=== PATIENT | male | born 1950 | race Caucasian/White ===

== ENCOUNTER 2018-05-31 16:17 | Inpatient (IN) | payer OTHER, MEDICARE ==
[2018-05-31] MEDS ORDERED: ISOVUE-370 76% 100ML VIAL (Q9967) As Ordered (17:07)
[2018-05-31] MEDS: NS 1,000 ML IV (17:14)
[2018-05-31] MEDS: ONDANSETRON 4MG/2ML VIAL (J2405) IV (17:15)
[2018-05-31] MEDS: MORPHINE 4 MG/ML 1ML VIAL/SYRINGE (J2270) IV (17:15)
[2018-05-31 17:31] LABS: BASO % 0.3 % (0.0-1.0); EOS % 0.4 % (0.0-3.0); HEMATOCRIT 40.7 % (42.0-52.0); HEMOGLOBIN 13.5 g/dl (13.5-17.5); IMMATURE GRANULOCYTE % 0.5 % (0-3.0); LYMPH # 1.4 10^3/uL (1.5-4.5); LYMPH % 13.5 % (24.0-44.0); MEAN CORPUSCULAR HEMOGLOBIN 33.7 pg (27.0-33.0); MEAN CORPUSCULAR HGB CONC 33.2 g/dl (32.0-36.5); MEAN CORPUSCULAR VOLUME 101.5 fl (80.0-96.0); MONO # 0.7 10^3/uL (0.0-0.8); MONO % 6.5 % (0.0-5.0); NEUTROPHILS # 8.2 10^3/uL (1.8-7.7); NEUTROPHILS % 78.8 % (36.0-66.0); PLATELET COUNT, AUTOMATED 179 10^3/uL (150-450); RED BLOOD COUNT 4.01 10^6/uL (4.30-6.10); RED CELL DISTRIBUTION WIDTH 13.2 % (11.5-14.5); WHITE BLOOD COUNT 10.4 10^3/uL (4.0-10.0)
[2018-05-31 17:51] LABS: ALBUMIN/GLOBULIN RATIO 0.93 (1.00-1.93); ALKALINE PHOSPHATASE 85 U/L (45-117); ALT/SGPT 42 U/L (12-78); AMYLASE 66 U/L (25-115); ANION GAP 12 MEQ/L (8-16); AST/SGOT 35 U/L (7-37); BILIRUBIN,DIRECT 0.3 MG/DL (0.0-0.2); BILIRUBIN,TOTAL 0.9 MG/DL (0.2-1.0); BLOOD UREA NITROGEN 17 MG/DL (7-18); CALCIUM LEVEL 8.6 MG/DL (8.8-10.2); CARBON DIOXIDE LEVEL 23 MEQ/L (21-32); CHLORIDE LEVEL 106 MEQ/L (98-107); CPK CREATINE PHOSPHOKINASE 287 U/L (39-308); CREATININE FOR GFR 1.16 MG/DL (0.70-1.30); GLOMERULAR FILTRATION RATE > 60.0 (>49); GLUCOSE, FASTING 88 MG/DL (70-100); INR 0.93; LIPASE 112 U/L (73-393); POTASSIUM SERUM 4.4 MEQ/L (3.5-5.1); PROTHROMBIN TIME 12.6 SECONDS (12.1-14.4); SODIUM LEVEL 141 MEQ/L (136-145); TOTAL PROTEIN 8.3 GM/DL (6.4-8.2); TROPONIN I < 0.02 NG/ML (< 0.10)
[2018-05-31] MEDS ORDERED: diphenhydrAMINE INJ 50MG/ML VIAL (J1200) IV (20:45)
[2018-05-31] MEDS ORDERED: EPIDURAL/PCA KEYS XX (20:45)
[2018-05-31] MEDS ORDERED: ONDANSETRON 4MG/2ML VIAL (J2405) IV (20:45)
[2018-05-31] MEDS ORDERED: NALOXONE INJ 0.4 MG/1 ML VIAL (J2310) IV (20:45)
[2018-05-31] MEDS ORDERED: NALBUPHINE HCL 10 MG/ML AMP (J2300) IV (20:45)
[2018-05-31] MEDS: LR 1,000 ML IV (21:39)
[2018-05-31] MEDS: DOCUSATE SODIUM 100 MG CAP PO (21:39)
[2018-05-31] MEDS: ACETAMINOPHEN TAB 650MG DOSE (2X325MG) PO (21:41)
[2018-05-31] MEDS ORDERED: KETOROLAC 30 MG/ML VIAL (J1885) IV (23:00)
[2018-06-01] MEDS: KETOROLAC 30 MG/ML VIAL (J1885) IV ×5 (00:30→23:55)
[2018-06-01] MEDS: MORPHINE 1MG/ML IN 0.9% NACL 100ML IV BAG IV ×2 (00:43→23:54)
[2018-06-01 08:13] LABS: BASO % 0.2 % (0.0-1.0); EOS # 0.1 10^3/uL (0.0-0.50); EOS % 1.1 % (0.0-3.0); HEMATOCRIT 35.3 % (42.0-52.0); HEMOGLOBIN 11.6 g/dl (13.5-17.5); IMMATURE GRANULOCYTE % 0.3 % (0-3.0); LYMPH # 1.8 10^3/uL (1.5-4.5); LYMPH % 27.9 % (24.0-44.0); MEAN CORPUSCULAR HEMOGLOBIN 33.9 pg (27.0-33.0); MEAN CORPUSCULAR HGB CONC 32.9 g/dl (32.0-36.5); MEAN CORPUSCULAR VOLUME 103.2 fl (80.0-96.0); MONO # 0.7 10^3/uL (0.0-0.8); MONO % 11.1 % (0.0-5.0); NEUTROPHILS # 3.9 10^3/uL (1.8-7.7); NEUTROPHILS % 59.4 % (36.0-66.0); PLATELET COUNT, AUTOMATED 147 10^3/uL (150-450); RED BLOOD COUNT 3.42 10^6/uL (4.30-6.10); RED CELL DISTRIBUTION WIDTH 13.4 % (11.5-14.5); WHITE BLOOD COUNT 6.5 10^3/uL (4.0-10.0)
[2018-06-01 08:42] LABS: ANION GAP 5 MEQ/L (8-16); BLOOD UREA NITROGEN 18 MG/DL (7-18); CALCIUM LEVEL 8.3 MG/DL (8.8-10.2); CARBON DIOXIDE LEVEL 26 MEQ/L (21-32); CHLORIDE LEVEL 109 MEQ/L (98-107); CREATININE FOR GFR 1.14 MG/DL (0.70-1.30); GLOMERULAR FILTRATION RATE > 60.0 (>49); GLUCOSE, FASTING 96 MG/DL (70-100); POTASSIUM SERUM 4.6 MEQ/L (3.5-5.1); SODIUM LEVEL 140 MEQ/L (136-145)
[2018-06-01] MEDS: DOCUSATE SODIUM 100 MG CAP PO ×2 (10:25→20:27)
[2018-06-01] MEDS: PANTOPRAZOLE 40MG TAB (PROTONIX) PO (10:25)
[2018-06-01] MEDS: LR 1,000 ML IV (17:51)
[2018-06-02 05:44] LABS: KETONE, URINE AUTO RFX TRACE mg/dL (NEGATIVE); LEUKOCYTE ESTERASE UR AUTO RFX NEGATIVE (NEGATIVE); MUCUS, URINE RFX SMALL (NEGATIVE); NITRITE, URINE AUTO RFX NEGATIVE (NEGATIVE); RBC, URINE AUTO RFX 2 /HPF (0-3); SPECIFIC GRAVITY UR AUTO RFX 1.033 (1.002-1.035); SQUAM EPITHELIAL CELL UR AURFX 0 /HPF (0-6); WBC, URINE AUTO RFX 2 /HPF (0-3)
[2018-06-02] MEDS: KETOROLAC 30 MG/ML VIAL (J1885) IV ×2 (06:28→12:31)
[2018-06-02] MEDS: DOCUSATE SODIUM 100 MG CAP PO ×2 (09:34→20:46)
[2018-06-02] MEDS: PANTOPRAZOLE 40MG TAB (PROTONIX) PO (09:34)
[2018-06-02] MEDS: PERCOCET 5MG/325MG TAB PO ×2 (14:33→22:33)
[2018-06-02] MEDS: IBUPROFEN 600 MG TAB PO ×2 (18:15→23:00)
[2018-06-03] MEDS: PERCOCET 5MG/325MG TAB PO ×5 (02:45→20:03)
[2018-06-03] MEDS: IBUPROFEN 600 MG TAB PO ×4 (04:59→23:41)
[2018-06-03] MEDS ORDERED: MORPHINE 4 MG/ML 1ML VIAL/SYRINGE (J2270) IV ×2 (07:30)
[2018-06-03] MEDS: DOCUSATE SODIUM 100 MG CAP PO ×2 (09:40→20:01)
[2018-06-03] MEDS: PANTOPRAZOLE 40MG TAB (PROTONIX) PO (09:40)
[2018-06-03] MEDS: CYCLOBENZAPRINE 10 MG TAB PO ×3 (09:40→23:41)
[2018-06-04] MEDS: PERCOCET 5MG/325MG TAB PO ×3 (04:33→19:07)
[2018-06-04] MEDS: CYCLOBENZAPRINE 10 MG TAB PO (05:21)
[2018-06-04] MEDS: IBUPROFEN 600 MG TAB PO ×3 (05:22→17:16)
[2018-06-04] MEDS: DOCUSATE SODIUM 100 MG CAP PO ×2 (08:13→20:32)
[2018-06-04] MEDS: PANTOPRAZOLE 40MG TAB (PROTONIX) PO (08:13)
[2018-06-04] MEDS: MIRALAX *UNIT DOSE* 17GM PACKET PO (20:32)
[2018-06-05] MEDS: IBUPROFEN 600 MG TAB PO ×2 (00:09→05:57)
[2018-06-05] MEDS: CYCLOBENZAPRINE 10 MG TAB PO (01:12)
[2018-06-05] MEDS: PERCOCET 5MG/325MG TAB PO (01:13)
[2018-06-05] MEDS: DOCUSATE SODIUM 100 MG CAP PO (08:35)
[2018-06-05] MEDS: MIRALAX *UNIT DOSE* 17GM PACKET PO (08:35)
[2018-06-05] MEDS: PANTOPRAZOLE 40MG TAB (PROTONIX) PO (08:35)
== END 2018-06-05 10:35 | disposition home or self-care (01) | DRG 135 ==
LOC: M MS4PR 06-02 20:53 → M MSPAV 06-01 00:13 → M ED 16:17 → M ED INP 20:31
PROVIDERS: Surgery
DX: S27.321A Contusion of lung, unilateral, initial encounter (principal); S22.42XA Multiple fractures of ribs, left side, initial encounter for closed fracture; E78.00 Pure hypercholesterolemia, unspecified; E66.9 Obesity, unspecified; W17.4XXA Fall from dock, initial encounter; Y92.89 Other specified places as the place of occurrence of the external cause

== ENCOUNTER 2019-05-30 18:25 | Inpatient (IN) | payer MEDICARE, OTHER ==
[~2019-05-30] VITALS: Ht 177.8 cm; Wt 97.7 kg
[~2019-05-30 18:25] MED LIST: ASPI81TA85 PO; ATOR1TAB19 PO; COLA100C5 PO; CYCL10TA PO; IBUP-1022 PO; PERCOCET PO
[2019-05-30 19:11] LABS: BASO % 0.3 % (0.0-1.0); EOS # 0.2 10^3/uL (0.0-0.5); EOS % 2.5 % (0.0-3.0); HEMATOCRIT 35.6 % (42.0-52.0); HEMOGLOBIN 11.6 g/dl (13.5-17.5); LYMPH # 1.6 10^3/uL (1.5-5.0); LYMPH % 24.4 % (24.0-44.0); MEAN CORPUSCULAR HEMOGLOBIN 32.4 pg (27.0-33.0); MEAN CORPUSCULAR HGB CONC 32.6 g/dl (32.0-36.5); MEAN CORPUSCULAR VOLUME 99.4 fl (80.0-96.0); MONO # 0.8 10^3/uL (0.0-0.8); MONO % 12.7 % (0.0-5.0); NEUTROPHILS # 3.9 10^3/uL (1.5-8.5); NEUTROPHILS % 59.6 % (36.0-66.0); PLATELET COUNT, AUTOMATED 198 10^3/uL (150-450); RED BLOOD COUNT 3.58 10^6/uL (4.30-6.10); WHITE BLOOD COUNT 6.5 10^3/uL (4.0-10.0)
[2019-05-30 19:48] LABS: ALBUMIN 2.9 GM/DL (3.2-5.2); ALT/SGPT 20 U/L (12-78); BILIRUBIN,DIRECT 0.2 MG/DL (0.0-0.2); BILIRUBIN,TOTAL 0.7 MG/DL (0.2-1.0); BLOOD UREA NITROGEN 17 MG/DL (7-18); CALCIUM LEVEL 8.3 MG/DL (8.8-10.2); CARBON DIOXIDE LEVEL 29 MEQ/L (21-32); CHLORIDE LEVEL 104 MEQ/L (98-107); CK-MB VALUE MASS < 1.0 NG/ML (<3.6); CPK CREATINE PHOSPHOKINASE 39 U/L (39-308); CREATININE FOR GFR 1.07 MG/DL (0.70-1.30); GLOMERULAR FILTRATION RATE > 60.0 (>49); GLUCOSE, FASTING 90 MG/DL (70-100); MB/CK RELATIVE INDEX 2.56 (< OR =4); NT-PRO BNP 67 PG/ML (<125); POTASSIUM SERUM 4.2 MEQ/L (3.5-5.1); SODIUM LEVEL 137 MEQ/L (136-145); TOTAL PROTEIN 7.3 GM/DL (6.4-8.2); TROPONIN I < 0.02 NG/ML (< 0.10)
[2019-05-30] MEDS ORDERED: ISOVUE-370 76% 100ML VIAL (Q9967) As Ordered ONE (20:16)
--- NOTE | 2019-05-30 21:25 | REPVR ---
PROCEDURE INFORMATION: Exam: CT Angiography Chest With Contrast Exam date and time: 05/30/2019 8:29 PM Clinical history: 68 years old, male; Cough; Additional info: Chronic cough TECHNIQUE: Imaging protocol: Computed tomographic angiography of the chest with intravenous contrast. 3D rendering: MIP reconstructed images were created and reviewed. Radiation optimization: All CT scans at this facility use at least one of these dose optimization techniques: automated exposure control; mA and/or kV adjustment per patient size (includes targeted exams where dose is matched to clinical indication); or iterative reconstruction. Contrast material: ISOVUE 370; Contrast volume: 100 ml; Contrast route: IV; COMPARISON: CT Chest with contrast 05/31/2018 5:14 PM FINDINGS: Pulmonary arteries: Peripheral pulmonary artery evaluation limited by cardiac and respiratory motion artifact. Central pulmonary arteries show no intraluminal defect suggestive of clot. Aorta: No thoracic aortic aneurysm or dissection. Lungs: Pulmonary vascular/interstitial pattern does not suggest active pulmonary edema. No suspicious lung mass or air space process. No central endobronchial lesion. Mild apical emphysema Pleural space: Moderate right and small left dependent pleural effusions. Adjacent atelectasis. No pneumothorax. Heart: No pericardial effusion. Lymph nodes: Small, nonspecific mediastinal nodes are present. Mildly prominent right hilar nodes measure up to 13 mm Bones/joints: Bony structures show no acute fracture or destructive process. . IMPRESSION: 1. No evidence of acute, central pulmonary embolus. Peripheral pulmonary artery evaluation is limited by motion related artifact 2. Bilateral pleural effusions, right greater than left, with atelectasis and with mildly prominent right hilar lymph nodes. No underlying mass or pneumonia. 3. Mild apical predominance likely centrilobular pattern of emphysema Electronically signed by: Tony Lee On 05/30/2019 21:25:27 PM
[2019-05-30] MEDS ORDERED: ACETAMINOPHEN TAB 650MG DOSE (2X325MG) PO PRN (23:45)
[2019-05-31] VITALS (7 sets, daily range): BP systolic 127–142; BP diastolic 61–79
--- NOTE | 2019-05-31 03:08 | HPEPDOC ---
[facility] Medical History & Physical Date of Admission May 30, 2019 Date of Service: May 30, 2019 Attending Physician: NITO TREJO MD History and Physical CHIEF COMPLAINT: Persistent fatigue and lethargy HISTORY OF PRESENT ILLNESS: Alexis is a 68-year-old male who presented to the emergency department on the evening of 05/30 with the chief complaints of persistent lethargy, fatigue and productive cough. 6 weeks ago, patient saw his primary care provider after experiencing productive cough and fatigue. Patient was diagnosed with pneumonia and treated with antibiotics. Patient is unaware of the specific antibiotic agent he took. Patient reports feeling a bit better after the first few days of antibiotic administration, but then experienced a plateau in his symptom improvement. He returned to his PCP 2 weeks ago (4 weeks after initial presentation), and repeat x-rays were taken. Patient did have a follow-up with PCP for this coming Saturday (06/03) for further x-rays. Over the past 7-10 days, the patient has felt very fatigued with a cough productive of clear phlegm. Patient states the frequency of his cough is similar to where it was on initial presentation 6 weeks ago. Rest/sleep is really the only thing that helps with his symptoms. Patient reports associated persistent belching, a decrease in appetite and decrease in desire to drink fluids, as well as rhinorrhea, specifically through right nare. Patient experiences coughing fits when he first wakes up. With these fits, patient endorses a shortness of breath with corresponding pain in his right lower back. It is easier for the patient to breathe while he is sitting up and he uses multiple pillows under his head while sleeping at night. Patient reports he has never had this constellation of symptoms before. He denies any recent extensive travel, exposure to sick contacts, or change in medication other than the aforementioned antibiotic. Patient's neighbor is a physician and he encouraged patient to present to the ED this evening. The patient is a former smoker, having quit 10 years ago after smoking for 30 years and averaging one half a pack per day of cigarettes. Patient denies any significant respiratory history and does not use any home oxygen. Patient has a pet dog at home. 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 He enjoys the outdoors and is an avid fisherman. Patient's primary care physician is Dr. Cobian. Based in [place]. Patient also follows yearly with a insemination worker in [place] for monitoring of an enlarged aorta. In the emergency department, initial labs showed mild anemia that was borderline normocytic versus macrocytic. Patient also had mildly decreased serum calcium and albumin. Chest CT angiography was performed and showed bilateral pleural effusions (right greater than left) with accompanying atelectasis and mildly prominent right hilar lymph nodes. There was also a mild apical predominance resembling a central lobar pattern consistent with emphysema. There was no evidence of PE, underlying mass, or PNA. A 2 view chest x-ray was also performed with no official radiology interpretation as of yet. Cursory review shows blunting of bilateral costophrenic angles with evidence of water densities p resent in bilateral lung bases (right greater than left). Both the right and left inferior heart borders are obscured. There also appears to be increased right hilar markings. A viral respiratory panel was negative. ED provider contacted thoracic surgery regarding patient's imaging results. Thoracic surgery asked hospitalist team to admit the patient with follow-up in the morning for likely chest tube placement and possible surgery to clean out patient's loculated effusion. Antibiotics were requested to be held until effusion samples were obtained. 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 REVIEW OF SYSTEMS: CONSTITUTIONAL: Denies fever, chills, night sweats, or recent unintentional change in weight HEENT: Endorses being nearsighted; Denies headache, lightheadedness, dizziness, blurry vision, diplopia, tinnitus, dysphagia, or odynophagia CARDIOVASCULAR: Denies chest pain, chest pressure or palpitations. RESPIRATORY: Endorses shortness of breath with coughing fits during which it is difficult for patient to catch breath, endorses productive cough of clear sputum with accompanying right lower back pain. GASTROINTESTINAL: Denies abdominal pain, feeling nauseated, or vomiting GENITOURINARY: Denies dysuria or hematuria. MUSCULOSKELETAL: Endorses right lower back pain with cough. NEUROLOGICAL:. Denies numbness or paresthesias. ENDOCRINE: Endorses recent mild cold intolerance. HEMATOLOGIC/LYMPHATIC: Endorses easier bruising over last 4-5 years (patient not on blood thinning medication). HOME MEDICATIONS: Please see below. PHYSICAL EXAMINATION: VITAL SIGNS: Temperature 99.6; (visualized on monitoring in ED) heart rate 86, blood pressure 140/89, respiratory rate 21, 97% O2 saturation on room air GENERAL APPEARANCE: Patient is a very pleasant male who at the end of his right at the end of his ED bed at time of exam. He is cooperative and interactive. He does not appear to be in any acute respiratory distress. HEENT: Normocephalic, atraumatic. Anicteric sclera. Patient is wearing prescription eyeglasses. Pupils are equal, round and reactive to light and accommodation. Extraocular motion testing is intact. There is no conjunctival pallor. There is no palpable cervical or supraclavicular lymphadenopathy. CARDIOVASCULAR: S1, S2 present with 2/6 systolic murmur heard best at the right sternal border, second intercostal space., No rubs or gallops are appreciated. Palpable radial and posterior tibial pulses bilaterally. Adequate capillary refi ll. No lower extremity edema present. LUNGS: Fine crackles present in bilateral lung bases. Cough was elicited with deep breaths. No tympany to percussion. No accessory muscle use or retractions with respiration. Symmetric chest expansion. Adequate respiratory effort. Speaking in full senses without dyspnea. Breathing on room air with good oxygen saturation. ABDOMEN: Soft, nontender and nonpainful to palpation in all abdominal quadrants. No tympany or dullness to percussion. No rebound or guarding. No palpable masses appreciated. MUSCULOSKELETAL: 5/5 muscle strength testing of upper extremity and lower show any bilaterally. EXTREMITIES: No clubbing or cyanosis. Palpable radial and posterior tibial pulses bilaterally. No lower extremity edema. NEUROLOGICAL: Awake, alert and oriented 3. Pleasant and interactive, responding appropriately to questions and commands. No focal deficits. PSYCHIATRIC: Pleasant and appropriate mood, appropriate affect. LABORATORY DATA: Please see below. IMAGIN05/30/19, chest CT angiography No evidence of acute, central pulmonary embolus. Peripheral pulmonary artery evaluation is limited by motion related artifact. Bilateral pleural effusions, right greater than left, with atelectasis and with mildly prominent right hilar lymph nodes. No underlying mass or pneumonia. Mild apical predominance likely centrilobular pattern of emphysema 05/30/19, PA and lateral chest x-ray formal radiology read not yet in; Cursory review shows blunting of bilateral costophrenic angles with evidence of water densities present in bilateral lung bases (right greater than left). Both the right and left inferior heart borders are obscured. There also appears to be increased right hilar markings. MICROBIOLOGY: Please see below. ASSESSMENT & PLAN: This is a 68-year-old male who was treated for pneumonia through his PCP in [place] 6 weeks ago who presented to the ED on the evening of 05/30 with increased lethargy, fatigue, and productive cough over the past 7-[address] angiogram in the ED showed bilateral pleural effusions, right greater than left. The right pleural effusion appears to be loculated. Thoracic surgery was contacted and subsequently requested patient be admitted in preparation for likely placement of chest tube and possible surgery on 05/31 to extricate loculated effusion. Thoracic surgery also asked for patient not to receive antibiotic treatment until effusion samples were obtained. Patient was admitted to the med/surg floor. #Bilateral pleural effusions with loculated right pleural effusion -Patient has had significant lethargy and fatigue with productive cough (clear phlegm) over the past 7-10 days, and was treated with antibiotics for pneumonia 6 weeks ago -Patient is afebrile with normal white count -05/30 Chest CTA showed b/l pleural effusions (rt>lt), w/ rt effusion appearing loculated -Thoracic surgery contacted by ED and requested patient be admitted in preparation for likely chest tube placement and possible surgery to remove effusion. Thoracic surgery also asked that no antibiotics be administered until effusion samples are obtained. -Official thoracic surgery consult placed. -Morning CBC, CMP, and pro-calcitonin ordered -Respiratory viral panel negative -prn acetaminophen for pain #History of recent pneumonia -Patient is afebrile with normal white count -Patient diagnosed with pneumonia 6 weeks ago and treated with unknown antibiotic by PCP. Patient had follow-up x-rays 2 weeks ago with PCP. Patient has experienced increased lethargy and fatigue over the past 7-10 days -Influenza vaccination ordered #Anemia, normocytic versus macrocytic -Borderline MCV between normocytic and macrocytic range -Patient endorses significant lethargy and fatigue over the past 7-10 days -Patient was treated for pneumonia 6 weeks ago -On review, patient was admitted a year ago for rib fractures and had similar CBC -Continue to follow on scheduled morning CBC #Family history of hypercholesterolemia -Patient's mother had elevated cholesterol -Patient's home atorvastatin was continued #DVT prophylaxis: In lieu of likely 05/31 chest tube placement and possible surgery, teds and sequentials were ordered. Vital Signs Vital Signs Date Time Temp Pulse Resp B/P (MAP) Pulse Ox O2 Delivery O2 Flow Rate FiO2 05/30/19 23:05 83 24 132/79 (96) 95 Room Air 05/30/19 18:25 99.6 Laboratory Data Labs 24H Laboratory Tests 2 05/30/19 18:58: Immature Granulocyte % (Auto) 0.5, Neutrophils (%) (Auto) 59.6, Lymphocytes (%) (Auto) 24.4, Monocytes (%) (Auto) 12.7H, Eosinophils (%) (Auto) 2.5, Basophils (%) (Auto) 0.3, Neutrophils # (Auto) 3.9, Lymphocytes # (Auto) 1.6, Monocytes # (Auto) 0.8, Eosinophils # (Auto) 0.2, Basophils # (Auto) 0.0, Nucleated Red Blood Cells % (auto) 0.0, Anion Gap 4L, Glomerular Filtration Rate > 60.0, Calcium Level 8.3L, Total Bilirubin 0.7, Direct Bilirubin 0.2, Aspartate Amino Transf (AST/SGOT) 11, Alanine Aminotransferase (ALT/SGPT) 20, Alkaline Phosphatase 78, Total Creatine Kinase 39, Creatine Kinase MB < 1.0, Creatine Kinase MB Relative Index 2.56, Troponin I < 0.02, DH-Ugu-Q-Type Natriuretic Pep tide 67, Total Protein 7.3, Albumin 2.9L, Albumin/Globulin Ratio 0.66L, Thyroid Stimulating Hormone (TSH) 1.420 CBC/BMP Laboratory Tests 05/30/19 18:58 Microbiology Microbiology 05/30/19 Respiratory Virus Panel (PCR) ([facility]ISSY) - Final, Complete Home Medications Scheduled Atorvastatin Calcium (Atorvastatin Calcium) 10 Mg Tab, 10 MG PO DAILY Allergies Coded Allergies: meperidine (Verified Allergy, Unknown, 05/30/19) A-FIB/CHADSVASC A-FIB History Current/History of A-Fib/PAF?: No Current PO Anticoag Therapy: No (TEDs and SCDs ordered) GME ATTESTATION GME ATTESTATION My faculty preceptor for this patient encounter was physically present during the encounter and was fully available. All aspects of the patient interview, examination, medical decision making process, and medical care plan development were reviewed and approved by the faculty preceptor. The faculty preceptor is aware and concurs with the plan as stated in the body of this note and will attest to such by his/her cosignature. ATTENDING NOTE I agree with the findings and plan above. Briefly, Mr. Nieves is a pleasant 68 yo gentleman with relatively good health who developed a productive cough and profound exhaustion approximately 5-6 weeks ago and presented to his PCP who t reated with 1 week of antibiotics for pneumonia. He had interval improvement of his symptoms but they returned after the antibiotic course and have not been improving such that he was undergoing further evaluation by his PCP when his neighbor and friend who is a physician suggested that he should present to the ED. In the ED he was hemodynamically stable and afebrile and studies were most notable for a CTA that showed bilateral pleural effusion R>L, with the right appearing loculated without evidence of a PE. The ED physician on noting this, consulted the thoracic surgeon who suggested admission to medicine with plan to see him tomorrow with plan for drainage, culture of the fluid pre-antibiotics to increase the yield and possibly further procedure depending on the nature of the effusion. He is therefore being admitted to medicine and we will hold off empiric antibiotics until after he is evaluated by thoracic surgery. YANG ROCHA PGY-1 May 31, 2019 03:08 NITO TREJO MD May 31, 2019 06:10
[2019-05-31 05:56] LABS: HEMATOCRIT 32.4 % (42.0-52.0); HEMOGLOBIN 10.6 g/dl (13.5-17.5); MEAN CORPUSCULAR HEMOGLOBIN 31.9 pg (27.0-33.0); MEAN CORPUSCULAR HGB CONC 32.7 g/dl (32.0-36.5); MEAN CORPUSCULAR VOLUME 97.6 fl (80.0-96.0); PLATELET COUNT, AUTOMATED 200 10^3/uL (150-450); RED BLOOD COUNT 3.32 10^6/uL (4.30-6.10)
[2019-05-31] MEDS ORDERED: ENOXAPARIN 40 MG/0.4 ML SYRINGE (J1650) SC SCH (06:00)
[2019-05-31 06:23] LABS: BLOOD UREA NITROGEN 14 MG/DL (7-18); CALCIUM LEVEL 8.8 MG/DL (8.8-10.2); CARBON DIOXIDE LEVEL 26 MEQ/L (21-32); CHLORIDE LEVEL 107 MEQ/L (98-107); CREATININE FOR GFR 0.92 MG/DL (0.70-1.30); GLOMERULAR FILTRATION RATE > 60.0 (>49); GLUCOSE, FASTING 86 MG/DL (70-100); POTASSIUM SERUM 3.8 MEQ/L (3.5-5.1); SODIUM LEVEL 139 MEQ/L (136-145)
--- NOTE | 2019-05-31 07:51 | ECGEPIP ---
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
[2019-05-31] MEDS ORDERED: FLUBLOK(EGG FREE)(QUAD)INFLUENZA VACC 0.5ML SYRINGE (90682)18YRS&OLDER IM ONE (09:00)
[2019-05-31] MEDS: ATORVASTATIN 10 MG TAB PO SCH (09:31)
--- NOTE | 2019-05-31 10:12 | REP ---
Chest x-ray: Two views. History: Dyspnea and cough. Comparison chest x-ray: June 01, 2018. Findings: Multiple healed rib fractures are noted on the left. There are small bilateral pleural effusions, right greater than left blunting the pleural angles. Fissural thickening is seen on lateral film. The heart is enlarged unchanged. Pulmonary vasculature appears somewhat cephalized. No pulmonary edema is seen. Impression: CHF pattern with bilateral effusions, right greater than left. Multiple old healed left-sided rib fractures. Electronically Signed by Lei Rodrigues MD 05/31/2019 10:18 A
--- NOTE | 2019-05-31 11:31 | CR ---
DATE OF CONSULTATION: 05/31/2019 The patient is seen at the request of the emergency room, Dr. Conrado Stephenson, and the hospitalist service in regard to cough, shortness of breath and a loculated right pleural effusion. HISTORY OF PRESENT ILLNESS: The patient is a 68-year-old white male whose story starts about 6 or 7 weeks ago when he started to develop a cough, preceded by fatigue. This later progressed about a week later to increased shortness of breath with moderate exertion, such as walking upstairs. He has never had problems with shortness of breath prior to 6 or 7 weeks ago. He was bringing up white sputum. No hemoptysis and no green or yellow sputum production. In the last 3 weeks he has developed a mild chest discomfort, particularly after his coughing spells in his posterior right side. However, he denies that it hurts to take a deep breath. He denies fever or sweats. He has been feeling more chilly but without rigor. There has been no dysphagia, but his appetite is markedly decreased. However, he does not report weight changes or changes in his clothes size. At the initial presentation, he saw his primary care provider, who started him on antibiotic. The antibiotic regimen caused a small amount of improvement; however, his symptoms became worse with increased cough and white sputum production and increased shortness of breath. His neighbor is a physician and after relaying him his story, he was advised to go to the emergency room, which he did last night. There was no acute symptomatic change prompting him to come to the emergency room other than the advice of his physician friend. PAST MEDICAL HISTORY: 1. Hyperlipidemia. MEDICATIONS: At home: - atorvastatin 10 mg daily PAST SURGERIES: 1. Two laminectomies on his lower back. He has had a 12-week course of antibiotics many years ago for an osteomyelitis of his finger after scratching it on a steel girder. 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 TRAVEL HISTORY: None outside [facility]. EXPOSURES: He has one dog, a Logan[employer] Bimal Spaniel. No birds or cats. HABITS: Smoked for about 30 years but quit 10 years ago, one pack per day. He drinks socially, maybe a beer a week. There are no illicit drugs. There is no exposure to tuberculosis. He has the above asbestos exposure. FAMILY HISTORY: Mother and father both had diabetes. There is a history of heart disease in the family with brother dying of myocardial infarction and sister secondary to ruptured aortic aneurysm. ALLERGIES: Listed as MEPERIDINE; however, he denies any medication allergies. REVIEW OF SYSTEMS: CONSTITUTIONAL: See history of present illness. EYES: Without diplopia. Without amaurosis fugax. Without prior jaundice. NOSE: Without epistaxis. He does have rhinorrhea, particularly out of the right nostril. MOUTH: Has his own teeth. He does complain of halitosis. RESPIRATORY: See history of present illness. CARDIAC: See history of present illness. Without myocardial infarctions. He does have hyperlipidemia. There is no intermittent claudication. No peripheral edema. GASTROINTESTINAL: Without nausea, vomiting, diarrhea, constipation, melena, hematochezia, hematemesis or abdominal pain. He does complain of decreased appetite as a constitutional symptom. GENITOURINARY: Without dysuria or hematuria. No history of renal stones. ENDOCRINE: Without diabetes. Without thyroid disease. NEUROLOGIC: Without paresthesias, paralysis or prior seizures. HEMATOLOGIC: States that he bruises easily. He also states that he does not have prolonged bleeding times but just increased bruisability, which always seem to heal. PSYCHIATRIC: Without pathological anxieties, depressions, or psychoses. PHYSICAL EXAMINATION: Well developed, well nourished, white male in no acute distress. Temperature is 98.0. Heart rate is 71 with a regular rate and rhythm. Respiratory rate is 18 without the use of accessory muscles. He is 95% saturated on room air. Blood pressure is 133/61. HEAD: Normocephalic. EYES: Pupils are round, equal and reactive to light. Extraocular muscles are intact. Sclerae nonicteric. NOSE: Without deformity. MOUTH: Shows mucous membranes to be pink and moist. Lips and commissures without lesions. There is no thrush. Teeth are in good repair. NECK: Supple. There is no jugular venous distention (JVD). No subcutaneous emphysema. Trachea is midline. There is no thyromegaly or lymphadenopathy. He has 2+ carotid upstrokes without bruits. LUNGS: Slightly decreased breath sounds in the right lower hemithorax. He also has a dull percussion note at the very base of the right hemithorax. The remainder of his pulmonary examination is unremarkable. Normal vesicular sounds without wheezes, rhonchi or rales. CARDIOVASCULAR: Without murmurs, clicks, gallops or rubs. I cannot feel his point of maximum impulse (PMI). S1, S2 normal. ABDOMEN: Soft, nontender. Bowel sounds positive. There is no hepatomegaly. No costovertebral angle tenderness. EXTREMITIES: No pretibial edema. No calf tenderness. No differential swelling of the upper extremities. SKIN: Warm, dry and perfused without cyanosis or mottling, including that of the nailbeds and knees. LYMPHATICS: There is no cervical, subclavicular, infraclavicular or axillary lymphadenopathy. NEUROLOGIC: II-XII intact. Gross motor and gross sensation intact. Gait is intact. PSYCHIATRIC: Shows him to be awake and alert, oriented times three with appropriate mood and conversational. LABORATORY DATA His white count today is 6.0 and 6.5 last night. Hemoglobin and hematocrit are 10.6 and 32.4, respectively with a platelet count of 200. Differential shows 59% neutrophils, 24% lymphocytes, 12% monocytes. There are no immature forms and no toxic granulations. Electrolytes are normal with a BUN and creatinine of 17 and 1.07. Glucose is 90 with a calcium of 8.3 and a corresponding albumin of 2.9. AST and ALT are normal. TSH is also normal. PT/INR not done and I will order those. Chest x-ray done last night in the emergency room shows a vague opacity in the right lower hemithorax, which is blunting the right costophrenic angle. He looks to have some fluid in the fissures on the right side. The left side shows sharp costophrenic angle. Lung is full expanded to the chest wall. CT angio done yesterday does not show a pulmonary embolism; however, it shows a loculated right pleural effusion in the lower hemithorax. He also has a small left rim of a pleural effusion in the lower left hemithorax. The study is of course contrasted. I cannot make out if he has coronary calcifications or whether it is filling the coronary arteries by contrast media. There is no pericardial effusion. He has a rim of compressed lung, which may be a fibrotic line on the right side. Liver is free of lesions. His adrenal glands have a normal configuration. There is no significant mediastinal lymphadenopathy. IMPRESSION: 1. Loculated right pleural effusion. 2. Small left pleural effusion. 3. Probable prior pneumonia, treated with antibiotics, most likely viral origin however. 4. Hyperlipidemia. 5. Mild anemia with mild macrocytosis rather than normal indices. 6. Mild macrocytosis with MCV of 97 to 99. PLAN/DISCUSSION: The basic course would be for Mr. Nieves to undergo a pigtail catheter under ultrasound control by radiology. I do have a sinking feeling that he does have lung entrapment and I will probably end up doing a TPA pleurolysis via the pigtail catheter. The worst case scenario is that he will have to come to a decortication. If the fluid is too viscous to remove by pigtail catheter, I will be forced to undertake a chest tube insertion, although it would be a tricky chest tube insertion secondary to the position of the pleural effusion. I will transfer him to progressive care unit (PCU) tomorrow in preparation for his pigtail catheter and Pleur-evac. We will send the pleural fluid for all the requisite studies, including hematology, chemistry, bacteriology, and cytology.
--- NOTE | 2019-05-31 11:50 | IPNPDOC ---
Date Seen The patient was seen on 05/31/19. Progress Note SUBJECTIVE: 68-year-old male with past medical history of hyperlipidemia, recently treated for pneumonia has been admitted for right-sided loculated pleural effusion. He was evaluated by thoracic surgery who recommended pigtail catheter with drainage, pleural fluid studies ordered, if unsuccessful will require TPA dornase infusion via pigtail catheter and/or decortication. Patient reports that he continues to have cough, nonproductive, along with pleuritic chest pain on the right side, minimal dyspnea. He denies any vomiting, abdominal pain or diarrhea. 10 point review of systems negative except for above PHYSICAL EXAMINATION: VITAL SIGNS: Please see below. GENERAL: No distress HEENT: Normocephalic, atraumatic, moist mucous membranes NECK: Supple CARDIOVASCULAR EXAMINATION: S1, S2, no murmurs RESPIRATORY EXAMINATION: Right lower lobe crackles appreciated, no wheezing ABDOMINAL EXAMINATION: Soft, nontender, nondistended, positive bowel sounds EXTREMITIES: Range of motion intact SKIN: No rash NEUROLOGICAL EXAMINATION: Alert and oriented 3, no focal deficits PSYCHIATRIC EXAMINATION: Calm and cooperative LABORATORY DATA, IMAGING STUDIES, MICROBIOLOGY: Please see below. DVT prophylaxis ordered?: Yes ASSESSMENT AND PLAN: 68-year-old male recently treated for pneumonia presents with right loculated effusion concerning for possible empyema. PROBLEMS: 1. Right sided Loculated pleural effusion: . Treated for pneumonia 4 weeks ago, continues to have cough, pleuritic chest pain, dyspnea. Remains afebrile and hemoglobin is stable, no signs of disseminated infection. Evaluated by thoracic surgery, pigtail catheter recommended, if unsuccessful, may require TPA/dornase infusion and/or decortication. Hold off on antibiotics for now until pleural fluid studies have been sent. 2. Hyperlipidemia. Continue atorvastatin. DVT prophylaxis: Lovenox. GI prophylaxis: Not needed at this time 2. : . 3. : . DISPOSITION: . VS, I&O, 24H, Fishbone Vital Signs/I&O Vital Signs Date Time Temp Pulse Resp B/P (MAP) Pulse Ox O2 Delivery O2 Flow Rate FiO2 05/31/19 10:00 97.6 72 18 140/74 (96) 97 Room Air I&O- Last 24 Hours up to 6 AM 05/31/19 06:00 Intake Total 250 ml Balance 250 ml Laboratory Data 24H LABS Laboratory Tests 2 05/30/19 18:58: Immature Granulocyte % (Auto) 0.5, Neutrophils (%) (Auto) 59.6, Lymphocytes (%) (Auto) 24.4, Monocytes (%) (Auto) 12.7H, Eosinophils (%) (Auto) 2.5, Basophils (%) (Auto) 0.3, Neutrophils # (Auto) 3.9, Lymphocytes # (Auto) 1.6, Monocytes # (Auto) 0.8, Eosinophils # (Auto) 0.2, Basophils # (Auto) 0.0, Nucleated Red Blood Cells % (auto) 0.0, Anion Gap 4L, Glomerular Filtration Rate > 60.0, Calcium Level 8.3L, Total Bilirubin 0.7, Direct Bilirubin 0.2, Aspartate Amino Transf (AST/SGOT) 11, Alanine Aminotransferase (ALT/SGPT) 20, Alkaline Phosphatase 78, Total Creatine Kinase 39, Creatine Kinase MB < 1.0, Creatine Kinase MB Relative Index 2.56, Troponin I < 0.02, VR-Ibe-H-Type Natriuretic Peptide 67, Total Protein 7.3, Albumin 2.9L, Albumin/Globulin Ratio 0.66L, T hyroid Stimulating Hormone (TSH) 1.420 05/31/19 05:24: Nucleated Red Blood Cells % (auto) 0.0, Anion Gap 6L, Glomerular Filtration Rate > 60.0, Calcium Level 8.8 CBC/BMP Laboratory Tests 05/30/19 18:58 05/31/19 05:24 Microbiology Microbiology 05/30/19 Respiratory Virus Panel (PCR) ([facility]) - Final, Complete REYNALDO WHITAKER MD May 31, 2019 11:50
[2019-05-31 12:22] LABS: INR 1.11
[2019-05-31 12:23] LABS: PARTIAL THROMBOPLASTIN TIME 30.6 SECONDS (25.0-38.4)
[2019-05-31] MEDS ORDERED: SLF 3 ML SYR IV PRN (13:45)
[2019-05-31] MEDS: SLF 3 ML SYR IV SCH ×2 (14:26→22:00)
[2019-06-01] VITALS (9 sets, daily range): BP systolic 105–144; BP diastolic 58–92
[2019-06-01 05:43] LABS: HEMATOCRIT 31.8 % (42.0-52.0); HEMOGLOBIN 10.5 g/dl (13.5-17.5); MEAN CORPUSCULAR HEMOGLOBIN 32.5 pg (27.0-33.0); MEAN CORPUSCULAR VOLUME 98.5 fl (80.0-96.0); PLATELET COUNT, AUTOMATED 197 10^3/uL (150-450); RED BLOOD COUNT 3.23 10^6/uL (4.30-6.10); WHITE BLOOD COUNT 4.7 10^3/uL (4.0-10.0)
[2019-06-01] MEDS: SLF 3 ML SYR IV SCH ×3 (05:56→20:23)
[2019-06-01 06:07] LABS: ALBUMIN 2.5 GM/DL (3.2-5.2); ALT/SGPT 20 U/L (12-78); BILIRUBIN,TOTAL 0.4 MG/DL (0.2-1.0); BLOOD UREA NITROGEN 17 MG/DL (7-18); CALCIUM LEVEL 8.4 MG/DL (8.8-10.2); CARBON DIOXIDE LEVEL 26 MEQ/L (21-32); CHLORIDE LEVEL 108 MEQ/L (98-107); CREATININE FOR GFR 0.87 MG/DL (0.70-1.30); GLOMERULAR FILTRATION RATE > 60.0 (>49); GLUCOSE, FASTING 93 MG/DL (70-100); LDH LACTATE DEHYDROGENASE 116 U/L (87-241); MAGNESIUM LEVEL 2.1 MG/DL (1.8-2.4); PHOSPHORUS LEVEL 3.3 MG/DL (2.5-4.9); SODIUM LEVEL 139 MEQ/L (136-145); TOTAL PROTEIN 7.4 GM/DL (6.4-8.2)
[2019-06-01] MEDS ORDERED: FLUBLOK(EGG FREE)(QUAD)INFLUENZA VACC 0.5ML SYRINGE (90682)18YRS&OLDER IM ONE (09:00)
[2019-06-01] MEDS: ATORVASTATIN 10 MG TAB PO SCH (09:24)
[2019-06-01] MEDS: KETOROLAC 30 MG/ML VIAL (J1885) IV SCH ×2 (12:00→17:24)
[2019-06-01] MEDS ORDERED: LEVALBUTEROL 1.25 MG/0.5 ML CONCENTRATE NEB NEB PRN (13:15)
[2019-06-01] MEDS ORDERED: BISACODYL 10 MG SUPP PR PRN (13:15)
[2019-06-01] MEDS ORDERED: ONDANSETRON 4MG/2ML VIAL (J2405) IV PRN (13:15)
[2019-06-01] MEDS ORDERED: PERCOCET 5MG/325MG TAB PO PRN ×2 (13:15)
[2019-06-01] MEDS: KCL 20MEQ IN D5/NS 1000ML 1,000 ML IV SCH (13:58)
[2019-06-01] MEDS: LEVALBUTEROL 1.25 MG/0.5 ML CONCENTRATE NEB NEB SCH ×2 (14:00→20:20)
--- NOTE | 2019-06-01 14:33 | IPNPDOC ---
Date Seen The patient was seen on 06/01/19. Progress Note SUBJECTIVE: 68-year-old male with past medical history of hyperlipidemia, recently treated for pneumonia has been admitted for right-sided loculated pleural effusion. He was evaluated by thoracic surgery who recommended pigtail catheter with drainage, pleural fluid studies ordered, if unsuccessful will require TPA dornase infusion via pigtail catheter and/or decortication. Patient reports that he continues to have cough, nonproductive, along with pleuritic chest pain on the right side, minimal dyspnea. He denies any vomiting, abdominal pain or diarrhea. 06/01/2019 Patient comfortable in bed, continues to have dry cough, continue Ceftin or chest pain on the right side, denies any dyspnea, vomiting or diarrhea. Patient was evaluated by thoracic surgery yesterday, plan for pigtail catheter by IR today. Patient is seeming to be stable, not showing any signs of septicemia. 10 point review of systems negative except for above PHYSICAL EXAMINATION: VITAL SIGNS: Please see below. GENERAL: No distress HEENT: Normocephalic, atraumatic, moist mucous membranes NECK: Supple CARDIOVASCULAR EXAMINATION: S1, S2, no murmurs RESPIRATORY EXAMINATION: Right lower lobe crackles appreciated, no wheezing ABDOMINAL EXAMINATION: Soft, nontender, nondistended, positive bowel sounds EXTREMITIES: Range of motion intact SKIN: No rash NEUROLOGICAL EXAMINATION: Alert and oriented 3, no focal deficits PSYCHIATRIC EXAMINATION: Calm and cooperative LABORATORY DATA, IMAGING STUDIES, MICROBIOLOGY: Please see below. DVT prophylaxis ordered?: Yes ASSESSMENT AND PLAN: 68-year-old male recently treated for pneumonia presents with right loculated effusion concerning for possible empyema. PROBLEMS: 1. Right sided Loculated pleural effusion: . Treated for pneumonia 4 weeks ago, continues to have cough, pleuritic chest pain, dyspnea. Remains afebrile and hemoglobin is stable, no signs of dissemi nated infection. Evaluated by thoracic surgery, scheduled for pigtail catheter today by IR. Hold off on antibiotics for now until pleural fluid studies have been sent. 2. Hyperlipidemia. Continue atorvastatin. DVT prophylaxis: Lovenox. GI prophylaxis: Not needed at this time VS, I&O, 24H, Fishbone Vital Signs/I&O Vital Signs Date Time Temp Pulse Resp B/P (MAP) Pulse Ox O2 Delivery O2 Flow Rate FiO2 06/01/19 11:36 98.2 71 18 141/82 (101) 93 Room Air I&O- Last 24 Hours up to 6 AM 06/01/19 05:59 Intake Total 1230 ml Output Total 200 ml Balance 1030 ml Laboratory Data 24H LABS Laboratory Tests 2 06/01/19 05:16: Nucleated Red Blood Cells % (auto) 0.0, Anion Gap 5L, Glomerular Filtration Rate > 60.0, Calcium Level 8.4L, Phosphorus Level 3.3, Magnesium Level 2.1, Total Bilirubin 0.4, Aspartate Amino Transf (AST/SGOT) 13, Alanine Aminotransferase (ALT/SGPT) 20, Alkaline Phosphatase 66, Lactate Dehydrogenase 116, Total Protein 7.4, Albumin 2.5L, Albumin/Globulin Ratio 0.51L CBC/BMP Laboratory Tests 06/01/19 05:16 Microbiology Microbiology 05/30/19 Respiratory Virus Panel (PCR) ([facility]) - Final, Complete REYNALDO WHITAKER MD Jun 01, 2019 14:33
[2019-06-01] MEDS ORDERED: LIDOCAINE 1% MDV 20ML VIAL As Ordered ONE (15:11)
[2019-06-01 16:39] LABS: PH BODY FLUID 7.505 UNITS (NOT ESTABLISHED); SOURCE, BODY FLUID pH PLEURAL
[2019-06-01 17:01] LABS: AMYLASE, BODY FLUID 41 U/L (NOT ESTABLISHED); CHOLESTEROL, BODY FLUID 74 MG/DL (NOT ESTABLISHED); LDH, BODY FLUID 741 U/L (NOT ESTABLISHED); SOURCE, BODY FLUID AMYLASE PLEURAL; SOURCE, BODY FLUID CHOL PLEURAL; SOURCE, BODY FLUID GLUCOSE PLEURAL; SOURCE, BODY FLUID LDH PLEURAL; SOURCE, BODY FLUID TRIG PLEURAL; TRIGLYCERIDE, BODY FLUID 30 MG/DL (NOT ESTABLISHED)
[2019-06-01 17:02] LABS: SOURCE, BODY FLUID ALBUMIN PLEURAL; SOURCE, BODY FLUID TOT PROTEIN PLEURAL; TOTAL PROTEIN, BODY FLUID 5.6 G/DL (NOT ESTABLISHED)
[2019-06-01 17:21] LABS: SOURCE, BODY FLUID PLEURAL
[2019-06-01 17:22] LABS: APPEARANCE, BODY FLUID HAZY (CLEAR); PLEURAL FL COLOR ORANGE (COLORLESS)
[2019-06-01] MEDS: NORCO, ANEXSIA 5/325MG TABLET (HYDROcodone/ACETAMINOPHEN) PO PRN ×2 (17:32→20:39)
[2019-06-01] MEDS: DOCUSATE SODIUM 100 MG CAP PO SCH (20:15)
[2019-06-02] VITALS: BP 141/81
[2019-06-02] MEDS: KETOROLAC 30 MG/ML VIAL (J1885) IV SCH ×5 (00:15→23:46)
[2019-06-02] MEDS: LEVALBUTEROL 1.25 MG/0.5 ML CONCENTRATE NEB NEB SCH ×4 (02:07→21:06)
[2019-06-02] MEDS: KCL 20MEQ IN D5/NS 1000ML 1,000 ML IV SCH (03:20)
[2019-06-02 04:00] VITALS: BP 120/65
[2019-06-02] MEDS: SLF 3 ML SYR IV SCH ×3 (05:33→20:36)
[2019-06-02 06:11] LABS: BASO % 0.2 % (0.0-1.0); EOS # 0.1 10^3/uL (0.0-0.5); EOS % 3.1 % (0.0-3.0); HEMATOCRIT 30.8 % (42.0-52.0); HEMOGLOBIN 9.9 g/dl (13.5-17.5); LYMPH # 1.6 10^3/uL (1.5-5.0); LYMPH % 38.3 % (24.0-44.0); MEAN CORPUSCULAR HGB CONC 32.1 g/dl (32.0-36.5); MEAN CORPUSCULAR VOLUME 99.7 fl (80.0-96.0); MONO # 0.5 10^3/uL (0.0-0.8); MONO % 12.4 % (0.0-5.0); NEUTROPHILS # 1.9 10^3/uL (1.5-8.5); NEUTROPHILS % 45.5 % (36.0-66.0); PLATELET COUNT, AUTOMATED 185 10^3/uL (150-450); RED BLOOD COUNT 3.09 10^6/uL (4.30-6.10); WHITE BLOOD COUNT 4.3 10^3/uL (4.0-10.0)
[2019-06-02 06:34] LABS: BLOOD UREA NITROGEN 21 MG/DL (7-18); CALCIUM LEVEL 8.7 MG/DL (8.8-10.2); CARBON DIOXIDE LEVEL 26 MEQ/L (21-32); CHLORIDE LEVEL 108 MEQ/L (98-107); CREATININE FOR GFR 1.19 MG/DL (0.70-1.30); GLOMERULAR FILTRATION RATE > 60.0 (>49); GLUCOSE, FASTING 91 MG/DL (70-100); MAGNESIUM LEVEL 2.1 MG/DL (1.8-2.4); POTASSIUM SERUM 4.4 MEQ/L (3.5-5.1); SODIUM LEVEL 140 MEQ/L (136-145)
[2019-06-02 07:50] LABS: LDH LACTATE DEHYDROGENASE 125 U/L (87-241); TOTAL PROTEIN 7.2 GM/DL (6.4-8.2)
[2019-06-02 08:00] VITALS: BP 134/77
--- NOTE | 2019-06-02 08:19 | REP ---
Clinical: Follow up pleural effusion. Technique: PA and lateral. Comparison: 05/30/2019. Findings: Mediastinum and cardiac silhouette are stable. Pigtail catheter in identified at the right base with decreased right lower lobe effusion. Small left effusion and bibasilar atelectasis suggested. No pneumothorax. Skeletal structures intact. Impression: Pigtail catheter at the right base with decreased right pleural effusion. Small left pleural effusion and bibasilar atelectasis remains stable. Electronically Signed by Chau Madsen MD 06/02/2019 08:11 A
[2019-06-02] MEDS: PANTOPRAZOLE 40MG TAB (PROTONIX) PO SCH (09:29)
[2019-06-02] MEDS: ATORVASTATIN 10 MG TAB PO SCH (09:29)
[2019-06-02] MEDS: DOCUSATE SODIUM 100 MG CAP PO SCH ×2 (09:29→20:35)
[2019-06-02] MEDS: MOM 30ML SUSPENSION UDC PO SCH (09:30)
--- NOTE | 2019-06-02 10:38 | IPN ---
DATE: 06/02/2019 Mr. Nieves underwent his ultrasound-guided thoracentesis. The report has not been dictated and I do not know exactly how much came out. Nonetheless, overnight, he has put out 255 mL. He states he is feeling much better and he is not coughing as much. His vital signs show a maximum temperature (T-max) of 98.2 with a heart rate that ranges between 67 and 76 and in sinus rhythm, respiratory rate of 16-20 without the use of accessory muscles, who is 94% saturated on room air and his blood pressures range between 132/75 to 141/81. His intake and output over the past 24 hours has been recorded as 2000 in and 655 out for a positivity of 1345 mL. As noted above, he has put out 255 mL from the chest tube and there is no air leak. Weight today is 97.2 kg compared to 94.3 kg yesterday. On physical examination, he has crackles and rales during inspiration in the right lower lung. He also has the same in the left lower hemithorax. Percussion note is full to the diaphragm. Cardiac exam is without murmur, clicks, gallops or rubs. I cannot feel his point of maximum impulse (PMI). S1 and S2 are normal. Abdomen is soft and nontender. Bowel sounds are positive. There is no hepatomegaly. No costovertebral angle (CVA) tenderness. Extremities still show 1+ pretibial edema with no calf tenderness. No differential swelling of the upper extremities. Skin is warm, dry and perfused without cyanosis or mottling including that of the nail beds and knees. Neck is supple. There is no jugular venous distention. No subcutaneous emphysema. Trachea is midline. Mouth shows his mucous membranes to be pink and moist. Lips and commissures are without lesions. There is no thrush. Eyes show his pupils to be equal and reactive. Extraocular movements intact. Sclerae nonicteric. Neurologic shows II-XII intact along with gross motor and gross sensation intact. Gait is not tested. Psychiatric showed him to be awake, alert and oriented times three with appropriate and affect and conversational. His white count today is 4.3 with a hemoglobin and hematocrit of 9.9 and 30.8 essentially unchanged from yesterday with a platelet count of 185. Differential shows 45% neutrophils, 38% lymphocytes, 12% monocytes. There are no immature forms or toxic granulations. His electrolytes are essentially normal with a BUN and creatinine of 21 and 1.19, calcium 8.7 and a glucose of 91 with a corresponding albumin of 2.5. His pleural fluid has come back with a pH 7.50 with an LDH of 741 with a corresponding serum LDH of 125. He has 2087 white cells, 8% of which are neutrophils and 91% on non-neutrophils, either lymphocytes or monocytes. Glucose is 67. This looks to be a non-neutrophilic exudative effusion. His chest x-ray shows a improvement in the pleural effusion. The pigtail catheter is in good place. He still has a left pleural effusion. There looks to be some compressive atelectasis and/or infiltrate in the right lower lobe. It does look as though the lung has come back to the chest wall, which is quite gratifying. IMPRESSION: 1. Loculated right pleural effusion improved with placement of pigtail catheter. 2. Small left pleural effusion continuing. 3. Probably prior pneumonia treated with antibiotics. 4. Hyperlipidemia. 5. Mild anemia with macrocytosis. 6. Exudative non-neutrophilic pleural effusion. PLAN/DISCUSSION: I will obtain another CT scan on him today to look at the expansion of the lung major to the chest wall and also look for any underlying malignancy. We will await the final pathology. Microbiology is not yet completed and there is no Gram stain done as of yet. I will also obtain an echocardiogram. Certainly a possibility for his left pleural effusion could be systolic or diastolic dysfunction. The other major category of the pleural effusions could be autoimmune.
[2019-06-02 12:00] VITALS: BP 135/73
[2019-06-02 16:00] VITALS: BP 129/70
--- NOTE | 2019-06-02 16:04 | IPNPDOC ---
Text Note Date of Service The patient was seen on 06/02/19. NOTE Subjective: Patient stated that he has less cough. No any acute events overn ight. Patient denies fever, chills, nausea, vomiting, diarrhea or dysuria Objective:VITAL SIGNS: Please see below. GENERAL APPEARANCE: Well-nourished, well-developed, not in apparent distress HEENT: Normocephalic, atraumatic. Mucous members moist and pink CARDIOVASCULAR: Regular rate and rhythm. No murmurs, rubs or gallops. Radial pulses are intact. There is no lower extremity edema LUNGS: . Diminished lung sounds, Right lower lobe crackles appreciated, no wheezing ABDOMEN: Bowel sounds are hypoactive. Abdomen is soft and nontender. MUSCULOSKELETAL: Range of motion is intact in all 4 extremities NEUROLOGICAL: Cranial nerves II-12 are grossly intact. Speech is not dysarthric ASSESSMENT AND PLAN: 68-year-old male recently treated for pneumonia presents with right loculated effusion concerning for possible empyema. Loculated right pleural effusion Lites criteria shows exudate. Await Gram stain. There is concern for autoimmune versus malignant process There is also possibility that patient had unresolved loculated exudate from previous pneumonia improved with placement of pigtail catheter Will repeat CT of the chest Await final pathology with cytology We will check JOVANY, CRP,RF, P-ANCA, anti citrullinated Ab Echo 2. Hyperlipidemia. Continue atorvastatin. VS,Fishbone, I+O VS, Fishbone, I+O Laboratory Tests 06/02/19 05:29 Vital Signs Date Time Temp Pulse Resp B/P (MAP) Pulse Ox O2 Delivery O2 Flow Rate FiO2 06/02/19 12:00 98.6 65 18 135/73 (93) 94 Room Air I&O- Last 24 Hours up to 6 AM 06/02/19 05:59 Intake Total 1640 ml Output Total 955 ml Balance 685 ml NILDA PETERSON DO Jun 02, 2019 16:04
[2019-06-02 16:28] LABS: C REACTIVE PROTEIN QUANTITATIV 2.76 MG/DL (0.00-0.30); RHEUMATOID FACTOR QUANT < 10.0 IU/ML (<15.0)
[2019-06-02 16:47] LABS: ERYTHROCYTE SEDIMENTATION RATE 102 mm/hr (0-20)
--- NOTE | 2019-06-02 17:01 | REP ---
Ultrasound-guided right pleural catheter placement The procedure was performed by NAVNEET Vasquez, under the direct supervision of Dr. Terry. The risks and benefits of the procedure were explained to the patient and informed consent was obtained both verbally and written. Directly prior to the start of the procedure, a formal timeout was completed in the exam room. Pleural fluid in the right hemithorax was localized using ultrasound guidance. The skin was prepped and draped in a sterile fashion. 4 ml of 1% lidocaine was used as a local anesthetic. Using ultrasound guidance, an 8-Occitan multi side-hole pigtail catheter was inserted and advanced into the fluid. 45 ml of red tinged colored fluid was withdrawn and sent to the lab for analysis. The catheter was then sutured in place and a Pleur-Evac was hooked up. The patient tolerated the procedure well and there were no immediate complications. Reviewed by NAVNEET Triana 06/01/2019 04:39 P Electronically Signed by Jose Manuel Terry MD 06/02/2019 04:52 P
[2019-06-02 20:00] VITALS: BP 159/89
--- NOTE | 2019-06-02 20:26 | REP ---
Clinical: Pleural effusion. Technique: Axial noncontrast images from the thoracic inlet to the upper abdomen with coronal and sagittal re-formations. Comparison: 05/30/2019. Findings: Pigtail catheter identified in the posterior right lung base with decreased right pleural effusion. Small left pleural effusion noted along with bibasilar atelectasis (left greater than right). No pneumothorax. No obvious pulmonary mass currently identified. Subcentimeter mediastinal and hilar lymph nodes are nonspecific. Further evaluation of the mediastinum demonstrates mild atherosclerotic changes to the thoracic aorta and coronary arteries without aortic aneurysm or significant cardiomegaly. No pericardial effusion. Tracheobronchial tree appears grossly patent. Osseous structures demonstrate old healed rib fractures and degenerative changes without focal osseous abnormality. Limited upper abdomen demonstrates normal bilateral adrenal glands. Impression: Decreased right pleural effusion. Small left pleural effusion along with bibasilar atelectasis (left greater than right). No obvious/definite mass lesion noted. Electronically Signed by Chau Madsen MD 06/02/2019 08:17 P
[2019-06-03] VITALS: BP 128/71
[2019-06-03] MEDS: LEVALBUTEROL 1.25 MG/0.5 ML CONCENTRATE NEB NEB SCH ×2 (02:00→07:08)
[2019-06-03] MEDS: SLF 3 ML SYR IV SCH (02:40)
[2019-06-03 04:00] VITALS: BP 119/58
[2019-06-03] MEDS: KETOROLAC 30 MG/ML VIAL (J1885) IV SCH ×2 (04:52→12:00)
[2019-06-03 05:39] LABS: BASO % 0.4 % (0.0-1.0); EOS # 0.2 10^3/uL (0.0-0.5); EOS % 4.3 % (0.0-3.0); HEMATOCRIT 31.8 % (42.0-52.0); HEMOGLOBIN 10.1 g/dl (13.5-17.5); LYMPH # 1.3 10^3/uL (1.5-5.0); MEAN CORPUSCULAR HEMOGLOBIN 31.7 pg (27.0-33.0); MEAN CORPUSCULAR HGB CONC 31.8 g/dl (32.0-36.5); MEAN CORPUSCULAR VOLUME 99.7 fl (80.0-96.0); MONO # 0.5 10^3/uL (0.0-0.8); MONO % 10.2 % (0.0-5.0); NEUTROPHILS # 2.8 10^3/uL (1.5-8.5); NEUTROPHILS % 57.7 % (36.0-66.0); PLATELET COUNT, AUTOMATED 196 10^3/uL (150-450); RED BLOOD COUNT 3.19 10^6/uL (4.30-6.10); WHITE BLOOD COUNT 4.9 10^3/uL (4.0-10.0)
[2019-06-03 06:01] LABS: BLOOD UREA NITROGEN 19 MG/DL (7-18); CALCIUM LEVEL 8.5 MG/DL (8.8-10.2); CARBON DIOXIDE LEVEL 26 MEQ/L (21-32); CHLORIDE LEVEL 108 MEQ/L (98-107); CREATININE FOR GFR 1.14 MG/DL (0.70-1.30); GLOMERULAR FILTRATION RATE > 60.0 (>49); GLUCOSE, FASTING 105 MG/DL (70-100); POTASSIUM SERUM 4.6 MEQ/L (3.5-5.1); SODIUM LEVEL 140 MEQ/L (136-145)
--- NOTE | 2019-06-03 06:58 | REP ---
Clinical: Follow up pleural effusions. Technique: PA and lateral. Comparison: 06/02/2019. Findings: Pigtail catheter at the right base again noted. Bibasilar pleuroparenchymal changes suggesting small effusions and atelectasis remain essentially stable. No obvious pneumothorax. Mediastinum and cardiac silhouette stable. Skeletal structures intact. Impression: Relatively stable bilateral pleuroparenchymal changes. No new acute process appreciated. Electronically Signed by Chau Madsen MD 06/03/2019 06:50 A
[2019-06-03 08:00] VITALS: BP 152/76
[2019-06-03] MEDS: ATORVASTATIN 10 MG TAB PO SCH (10:16)
[2019-06-03] MEDS: MOM 30ML SUSPENSION UDC PO SCH (10:16)
[2019-06-03] MEDS: PANTOPRAZOLE 40MG TAB (PROTONIX) PO SCH (10:16)
[2019-06-03] MEDS: DOCUSATE SODIUM 100 MG CAP PO SCH (10:16)
[2019-06-03] MEDS ORDERED: ACET1TAB55 PO (11:23)
[2019-06-03] MEDS ORDERED: PANT40TA3 PO (11:23)
[2019-06-03] MEDS ORDERED: VENTAER INH (11:23)
--- NOTE | 2019-06-03 11:50 | IPN ---
DATE: 06/03/2019 Mr. Nieves is feeling so much better today. He has almost no pain and his breathing is good. He has been ambulating. He is drained minimally from his chest catheter. His vital signs show a maximum temperature (T-max) of 98.9 with a heart rate that ranges between 79 and 82 and in sinus rhythm, respiratory rate is consistent of 18 without the use of accessory muscles, who is 96% saturated on room air and his blood pressures range between 119/58 to 152/76. His intake and output over the past 24 hours has been recorded as 1120 in and 940 out for a positivity of 180 mL. He has put out 40 mL from the chest tube yesterday and none overnight. Weight today is 97.7 kg compared to 97.2 kg yesterday. On physical examination, he has equal breath sounds on either side with some faint rales during inspiration in the right lower hemithorax. Percussion is noted full to the diaphragm. Cardiac exam is without murmur, clicks, gallops or rubs. I cannot feel his point of maximum impulse (PMI). S1 and S2 are normal. Abdomen is soft and nontender. Bowel sounds are positive. There is no hepatomegaly. No costovertebral angle (CVA) tenderness. Extremities show no pretibial edema. No calf tenderness. No differential swelling of the upper extremities. Skin is warm, dry and perfused without cyanosis or mottling including that of the nail beds and knees. Neck is supple. There is no jugular venous distention. No subcutaneous emphysema. Trachea is midline. Mouth shows his mucous membranes to be pink and moist. Lips and commissures are without lesions. There is no thrush. Eyes show his pupils to be equal and reactive. Extraocular movements intact. Sclerae nonicteric. Neurologic shows II-XII intact along with gross motor and gross sensation intact. Gait is also intact. Psychiatric showed him to be awake, alert and oriented times three with appropriate and affect and conversational. His white count is 4.9 with a hemoglobin and hematocrit of 10.1 and 31.8 respectively. Platelet count is 196 and differential shows 57% neutrophils, 27% lymphocytes, 10% monocytes. There are no immature forms or toxic granulations. His electrolytes are normal with a BUN and creatinine of 19 and 1.14 with a glucose of 105 and a calcium of 8.5. His rheumatoid factor is negative and his JOVANY is pending. His chest x-ray today shows his lung expanded to the chest wall with the chest catheter in good place. It looks as though there is some clearing of the left pleural effusion additionally. There is some fluid in the fissures. Most significantly his CT shows his lung fully expanded to the chest wall without a residual space. While he has compression underneath the drained effusion I do not see any masses per se. Adrenals showed normal configuration and there are no liver lesions. There is no pericardial effusion. There is minimal mediastinal lymphadenopathy with one paratracheal node with a lucent center which measures 1.5 cm in its greatest dimension. IMPRESSION: 1. Loculated right pleural effusion now drained and resolved. 2. Probable prior pneumonia treated with antibiotics. 3. Hyperlipidemia. 4. Mild anemia with macrocytosis. 5. Exudative non-neutrophilic pleural effusion, probably chronic. PLAN AND DISCUSSION: I have reviewed his echo and his systolic function is intact and there is no significant valvular dysfunction including aortic stenosis. I am still awaiting the official read. I would recommend that Mr. Nieves be discharged. I would not place him on any antibiotics. I will see him back in the office in 10 days with a followup chest x-ray.
--- NOTE | 2019-06-03 12:21 | ECHO ---
DATE OF PROCEDURE: 06/02/2019 DATE OF : 1950 AGE: 68 GENDER: Male HEIGHT: 70 inches WEIGHT: 213 pounds BODY SURFACE AREA: 2.15 m2 INPATIENT: PCU Room 3216 REFERRING PHYSICIAN: Dr. Matthias Mathew INDICATION: Murmur. MEASUREMENTS: 2-D Measurements: RV: 4.2 cm LV: 4.5 cm Septum: 1.1 cm Posterior wall: 1.1 cm Aortic root: 3.6 cm LA: 3.5 cm LVEF: 75% Doppler Measurements: AV: 1.1 m/s LVOT: 0.7 m/s LVOT diameter: 2.3 cm MV: E 59, A 73, EA ratio 0.8 Early mitral deceleration time: 246 ms E prime: 6.3, A prime: 7.4, E/E prime ratio: 9.4 PCWP: 12.5 mmHg PV: 0.8 m/s Pulmonary artery acceleration time: 92 ms PASP: 42 mmHg IVC: 2.0 cm with normal respiratory collapse COMMENTS: Normal sinus rhythm. M-mode and two-dimensional echocardiography was performed with pulsed, continuous wave, color flow and tissue Doppler studies. Normal left ventricular size, wall thickness and hyperkinetic wall motion. Normal-appearing left atrial size. No Doppler evidence of at least grade 1 LV diastolic dysfunction with current estimated mean left atrial pressure upper limits of normal. Borderline right heart chamber enlargement with normal wall motion and Doppler evidence of moderate pulmonary hypertension. Normal IVC size and collapse against an elevated central venous pressure. Mild aortic valvular sclerosis without functional abnormality. Mild mitral annular calcification without functional abnormality. Normal appearing tricuspid valve with only trace insufficiency. Minuscule anterior and posterior pericardial effusion without any sign of cardiac chamber compression or Doppler evidence to suggest cardiac tamponade. No apparent intracardiac mass.
--- NOTE | 2019-06-03 16:43 | DS.PDOC ---
Discharge Summary General Date of Admission May 30, 2019 at 22:55 Date of Discharge 06/03/19 Attending Physician: NILDA PETERSON DO Discharge Summary PROCEDURES PERFORMED DURING STAY: Chest tube placement ADMITTING DIAGNOSES: Right sided Loculated pleural effusion Hyperlipidemia. DISCHARGE DIAGNOSES: Right sided Loculated pleural effusion Hyperlipidemia. COMPLICATIONS/CHIEF COMPLAINT: Loculated Pleural Effusion. HISTORY OF PRESENT ILLNESS:68-year-old male with past medical history of hyperlipidemia, recently treated for pneumonia has been admitted for right-sided loculated pleural effusion. He was evaluated by thoracic surgery who recommended pigtail catheter with drainage, pleural fluid studies ordered, if unsuccessful will require TPA dornase infusion via pigtail catheter and/or decortication. Patient reports that he continues to have cough, nonproductive, along with pleuritic chest pain on the right side, minimal dyspnea. He denies any vomiting, abdominal pain or diarrhea. 06/01/2019 Patient comfortable in bed, continues to have dry cough, continue Ceftin or chest pain on the right side, denies any dyspnea, vomiting or diarrhea. Patient was evaluated by thoracic surgery pigtail catheter was placed. Patient is seeming to be stable, not showing any signs of septicemia. Subsequently on 06/03/19 pigtail catheter was removed. Shortness of breath resolved. Pleural fluid according to Lites criteria shows exudate. Gram stain negative. There is concern for autoimmune versus malignant process. there is also possibility that patient had unresolved loculated exudate from previous pneumonia. Await final pathology with cytology JOVANY, CRP,RF, P-ANCA, anti citrullinated Ab pending HOSPITAL COURSE: see above DISCHARGE MEDICATIONS: Please see below. ALLERGIES: Please see below. PHYSICAL EXAMINATION ON DISCHARGE: VITAL SIGNS: Please see below. GENERAL: No distress HEENT: Normocephalic, atraumatic, moist mucous membranes NECK: Supple CARDIOVASCULAR EXAMINATION: S1, S2, no murmurs RESPIRATORY EXAMINATION: Right lower lobe crackles appreciated, no wheezing ABDOMINAL EXAMINATION: Soft, nontender, nondistended, positive bowel sounds EXTREMITIES: Range of motion intact SKIN: No rash NEUROLOGICAL EXAMINATION: Alert and oriented 3, no focal deficits PSYCHIATRIC EXAMINATION: Calm and cooperative LABORATORY DATA: Please see below. IMAGING: Clinical: Pleural effusion. Technique: Axial noncontrast images from the thoracic inlet to the upper ab domen with coronal and sagittal re-formations. Comparison: 05/30/2019. Findings: Pigtail catheter identified in the posterior right lung base with decreased right pleural effusion. Small left pleural effusion noted along with bibasilar atelectasis (left greater than right). No pneumothorax. No obvious pulmonary mass currently identified. Subcentimeter mediastinal and hilar lymph nodes are nonspecific. Further evaluation of the mediastinum demonstrates mild atherosclerotic changes to the thoracic aorta and coronary arteries without aortic aneurysm or significant cardiomegaly. No pericardial effusion. Tracheobronchial tree appears grossly patent. Osseous structures demonstrate old healed rib fractures and degenerative changes without focal osseous abnormality. Limited upper abdomen demonstrates normal bilateral adrenal glands. Impression: Decreased right pleural effusion. Small left pleural effusion along with bibasilar atelectasis (left greater than right). No obvious/definite mass lesion noted. PROGNOSIS: Favorable ACTIVITY: As tolerated DIET: Regular DISCHARGE PLAN: Home DISPOSITION: Home, Self-Care. DISCHARGE INSTRUCTIONS: Follow-up with Dr. Mathew DISCHARGE CONDITION: Stable TIME SPENT ON DISCHARGE: Greater than 20 minutes. Vital Signs/I&Os Vital Signs Date Time Temp Pulse Resp B/P (MAP) Pulse Ox O2 Delivery O2 Flow Rate FiO2 06/03/19 08:00 97.9 82 18 152/76 (101) 94 Room Air I&O- Last 24 Hours up to 6 AM 06/03/19 06:00 Intake Total 1060 ml Output Total 935 ml Balance 125 ml Laboratory Data Labs 24H Laboratory Tests 2 06/03/19 05:06: Immature Granulocyte % (Auto) 0.4, Neutrophils (%) (Auto) 57.7, Lymphocytes (%) (Auto) 27.0, Monocytes (%) (Auto) 10.2H, Eosinophils (%) (Auto) 4.3H, Basophils (%) (Auto) 0.4, Neutrophils # (Auto) 2.8, Lymphocytes # (Auto) 1.3L, Monocytes # (Auto) 0.5, Eosinophils # (Auto) 0.2, Basophils # (Auto) 0.0, Nucleated Red Blood Cells % (auto) 0.0, Anion Gap 6L, Glomerular Filtration Rate > 60.0, Calcium Level 8.5L CBC/BMP Laboratory Tests 06/03/19 05:06 Microbiology Microbiology 06/01/19 Acid Fast Stain, Received Pending 06/01/19 Mycobacterial Culture, Received Pending 06/01/19 Fungal Smear, Received Pending 06/01/19 Fungal Culture, Received Pending 06/01/19 Gram Stain - Final, Complete 06/01/19 Anaerobic Culture - Final, Complete 06/01/19 Body Fluid Culture - Final, Complete 05/30/19 Respiratory Virus Panel (PCR) ([facility]) - Final, Complete Discharge Medications Scheduled Atorvastatin Calcium (Atorvastatin Calcium) 10 Mg Tab, 10 MG PO DAILY, (Reported) Pantoprazole Sodium (Pantoprazole Sodium) 40 Mg Tablet.dr, 40 MG PO DAILY Scheduled PRN Acetaminophen (Acetaminophen) 325 Mg Tablet, 650 MG PO Q4H PRN for PAIN OR FEVER Albuterol Sulfate (Ventolin Hfa) 18 Gm Hfa.aer.ad, 2 PUFF INH Q4-6HP PRN for wheezing Allergies Coded Allergies: meperidine (Verified Allergy, Unknown, 05/30/19) NILDA PETERSON DO Jun 03, 2019 16:43
== END 2019-06-03 14:32 | disposition home or self-care (01) | DRG 188 ==
LOC: M ED 18:25 → M ED INP 22:55 → M MSPAV 05-31 02:05 → M PCU 05-31 12:35
PROVIDERS: ADMIT Internal Medicine; ATTEND Internal Medicine
PROC: 0W9930Z Drainage of Right Pleural Cavity with Drainage Device, Percutaneous Approach (ICD-10-PCS; principal; 2019-06-01 14:00)
DX: J90 Pleural effusion, not elsewhere classified (principal); D53.9 Nutritional anemia, unspecified; E78.5 Hyperlipidemia, unspecified; Z88.8 Allergy status to other drugs, medicaments and biological substances; Z87.891 Personal history of nicotine dependence

== ENCOUNTER → 2019-07-13 | Outpatient (CLI) | payer OTHER ==
[~2019-07-13] MED LIST changes: +ACET1TAB55 PO; +PANT40TA3 PO; +VENTAER INH
--- NOTE | 2019-07-13 09:04 | REPPI ---
Clinical: Follow up pleural effusion. Technique: PA and lateral. Comparison: 06/11/2019. Findings: Mediastinum and cardiac silhouette are stable. Chronic bibasilar pleuroparenchymal changes are similar to prior examination and small superimposed acute atelectasis or small acute effusion cannot be excluded. No further consolidation. No pneumothorax. Skeletal structures intact. Impression: Chronic bibasilar pleuroparenchymal changes. Cannot exclude subtle acute basilar atelectasis or small new pleural effusion. Electronically Signed by Chau Madsen MD 07/13/2019 08:57 A
== END ==
LOC: M PLAIMG 08:42
PROVIDERS: ATTEND Thoracic Surgery (Cardiothoracic Vascular Surgery)
DX: J90 Pleural effusion, not elsewhere classified (principal)

== ENCOUNTER 2024-06-11 11:52 | Emergency (ER) | payer BC, MEDICARE, OTHER ==
[~2024-06-11] VITALS: Ht 177.8 cm; Wt 102.3 kg
[~2024-06-11 11:52] MED LIST changes: -ASPI81TA85 PO; +ASPI81TA86 PO; +CYCL-707 PO; -CYCL10TA PO; +PANT40TA29 PO; -PANT40TA3 PO
[2024-06-11 11:54] VITALS: TEMP 97.6; O2SAT 97
[2024-06-11] MEDS ORDERED: FAMO40TA3 (12:00)
[2024-06-11] MEDS ORDERED: MELO15TA28 (12:00)
[2024-06-11] MEDS ORDERED: IRBE150T27 (12:00)
[2024-06-11 12:02] VITALS: BP 186/90
[2024-06-11] MEDS ORDERED: CIPR0.3S37 OS (13:27)
[2024-06-11] MEDS: PROPARACAINE 0.5% OPHTH SOL 15ML OU ONE (13:28)
[2024-06-11] MEDS: FLUORESCEIN OPHTH 1MG STRIP OU ONE (13:28)
== END 2024-06-11 13:42 | disposition home or self-care (01) ==
LOC: M ED 11:52
DX: S05.02XA Injury of conjunctiva and corneal abrasion without foreign body, left eye, initial encounter (principal); I10 Essential (primary) hypertension; M06.9 Rheumatoid arthritis, unspecified; K21.9 Gastro-esophageal reflux disease without esophagitis; Z88.8 Allergy status to other drugs, medicaments and biological substances; Z79.52 Long term (current) use of systemic steroids; Z79.02 Long term (current) use of antithrombotics/antiplatelets; Z79.1 Long term (current) use of non-steroidal anti-inflammatories (NSAID); Z79.899 Other long term (current) drug therapy; Y92.9 Unspecified place or not applicable; Y93.89 Activity, other specified; Y99.9 Unspecified external cause status

== ENCOUNTER → 2024-09-23 | Outpatient (CLI) | payer MEDICARE ==
[~2024-09-23] MED LIST changes: +CIPR0.3S37 OS; +FAMO40TA3; +IRBE150T27; +MELO15TA28
== END ==
LOC: M PLALAB 13:22
PROVIDERS: ATTEND Student in an Organized Health Care Education/Training Program
DX: R97.20 Elevated prostate specific antigen [PSA] (principal)

== ENCOUNTER → 2025-04-26 | Outpatient (CLI) | payer MEDICARE ==
[~2025-04-26] MED LIST changes: -IBUP-1022 PO; +IBUP600T42 PO
== END ==
LOC: M WUC 13:40
PROVIDERS: ATTEND Urology
DX: R97.20 Elevated prostate specific antigen [PSA] (principal)